=== PATIENT | female | born 2000 | race Caucasian/White ===

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

== ENCOUNTER 2023-01-04 13:15 | Emergency (ER) | payer MEDICAID, OTHER ==
[~2023-01-04] VITALS: Ht 160 cm; Wt 101.8 kg
[2023-01-04] MEDS ORDERED: NACL 0.9% 1,000 ML IV ONE (13:35)
[2023-01-04 14:15] VITALS: BP 139/91; PULSE 70; RESP 19; TEMP 98.2; O2SAT 98
[2023-01-04] MEDS ORDERED: KETOROLAC 30 MG/ML VIAL IM ONE (14:15)
[2023-01-04] MEDS ORDERED: ACET-10509 PO (14:27)
[2023-01-04] MEDS ORDERED: IBUP-2213 PO (14:27)
[2023-01-04 15:32] VITALS: BP 135/88; PULSE 70; RESP 19; TEMP 97.9; O2SAT 98
== END 2023-01-04 15:31 | disposition home or self-care (01) ==
LOC: MED 13:15
DX: S52.92XA Unspecified fracture of left forearm, initial encounter for closed fracture (principal); W01.198A Fall on same level from slipping, tripping and stumbling with subsequent striking against other object, initial encounter; Y93.89 Activity, other specified; Y92.89 Other specified places as the place of occurrence of the external cause; Y99.8 Other external cause status
CPT/HCPCS: 29125; 73110; 73130; 81025; 96372; 99284; J1885